=== PATIENT | male | born 1975 | race Caucasian/White ===

== ENCOUNTER 2024-06-16 20:37 | Emergency (ER) | payer OTHER, SELFPAY ==
[2024-06-16 20:43] VITALS: BP 166/100
[2024-06-16 21:02] LABS: % Basophils 0.6 % (0-2); % Eosinophils 2.5 % (0-6); % Immature Granulocytes 0.5 % (0-0.5); % Lymphocytes 28.2 % (20.5-51.1); % Neutrophils 61.2 % (42.2-75.2); Absolute Basophils 0.1 10^3/uL (0-0.2); Absolute Eosinophils 0.2 10^3/uL (0-0.7); Absolute Lymphocytes 2.3 10^3/uL (1.2-3.4); Absolute Monocytes 0.6 10^3/uL (0.1-0.6); Absolute Neutrophils 4.9 10^3/uL (1.4-6.5); Hematocrit 40.7 % (39.0-52.0); Hemoglobin 14.4 g/dL (13.0-18.0); Mean Corp Hgb Conc. 35.4 g/dL (33.0-37.0); Mean Corpuscular Hgb 27.7 pg (27.0-31.0); Mean Corpuscular Volume 78.3 fL (80.0-94.0); Mean Platelet Volume 9.9 fL (7.4-10.4); Nucleated Red Blood Cells % 0 % (-); Platelet Count 274 10^3/uL (130-400); Red Cell Dist. Width 13.1 % (11.5-14.5)
[2024-06-16 21:20] VITALS: BP 153/94
[2024-06-16 21:21] LABS: ALT (SGPT) 23 U/L (0-50); AST (SGOT) 25 U/L (17-59); Albumin 4.5 g/dl (3.5-5.0); Alkaline Phosphatase 70 U/L (38-126); Blood Urea Nitrogen 18 mg/dl (9-20); Calcium 8.9 mg/dl (8.4-10.2); Carbon Dioxide 19 mmol/L (22-30); Chloride 105 mmol/L (98-107); Glucose 169 mg/dl (70-99); Potassium 3.9 mmol/L (3.5-5.1); Sodium 142 mmol/L (135-145); Total Bilirubin 0.9 mg/dl (0.2-1.3); Total Protein 6.9 g/dl (6.3-8.2); eGFR > 60.00
[2024-06-16 21:28] LABS: Troponin I < 0.012 ng/ml
--- NOTE | 2024-06-16 21:41 | ED.GENMED ---
History of Present Illness
General
Chief Complaint: Chest Pain
Time Seen by Provider: 06/16/24 21:25
History of Present Illness
History of Present Illness:
48-year-old male presents the emergency department for evaluation of left-sided chest discomfort that began approximately 2 hours ago, states that he feels a 'stretching' to the left pectoral region that began after eating ice cream. The symptoms
are better when lying flat and worse when upright. Denies any fevers or chills. Symptoms are somewhat pleuritic in nature as well. No coughing, recent fevers, nausea, or vomiting. Does note that he was recently diagnosed with newly discovered
cardiac murmur follow-up with cardiac history 2 to 3 weeks
Review of Systems
Review of Systems
Allergies reviewed?: Yes
All Other Systems: ROS reviewed and negative except as documented in HPI and ROS
Phy Exam
Physical Exam
Physical Exam:
GEN: Well appearing, NAD, WDWN
HEENT: Oral mucosa moist, no scleral icterus
Cardiac: Regular rate and rhythm, 1 out of 6 systolic murmur
Lung: No respiratory distress, no tachypnea, lungs clear to auscultation bilaterally
MSK: No gross deformity or injuries
Skin: Good color, no pallor or jaundice, no rashes
Neuro: AO x3, moves all extremities freely
Psych: Calm, cooperative
Scores
Heart Score for Chest Pain Patients
STEMI patient?: No
History: Slightly or Non-Suspicious
ECG: Normal
Age: >45 - <65 years
Risk Factors: 1 or 2 Risk Factors
Troponin: </= Normal Limit
Heart Score for Chest Pain Patients: 2
Heart Score Risk: 2.5% MACE over next 6 weeks
Course
Orders/Labs/Results
Orders:
Orders
06/16/24 20:38
Electrocardiogram (*1) Urgent
Reason for Study: Chest Pain
EKG- Treatment ONCE
06/16/24 20:52
Chest [CR Chest - 2 Views ] Urgent
Comment:
Reason For Exam: left chest pain
06/16/24 20:56
Complete Blood Count/With Diff Urgent
Comprehensive Metabolic Panel Urgent
Troponin I Urgent
06/16/24 21:41
Ketorolac [Toradol] 30 mg IM NOW STA
Abnormal Lab Results
06/16/24
20:56
MCV 78.3 L fL
(80.0-94.0)
Carbon Dioxide 19 L mmol/L
(22-30)
Glucose 169 H mg/dl
(70-99)
06/16/24 20:56
06/16/24 20:56
Vital Signs
Initial and Last Documented VS:
Initial Vital Signs
Temp Pulse Resp BP Pulse Ox
97.4 F 70 20 166/100 97
06/16/24 20:43 06/16/24 20:43 06/16/24 20:43 06/16/24 20:43 06/16/24 20:43
Last Documented Vital Signs
Temp Pulse Resp BP Pulse Ox
97.4 F 67 26 164/96 94
06/16/24 20:43 06/16/24 22:15 06/16/24 22:15 06/16/24 22:00 06/16/24 22:15
MDM/Problems Addressed
MDM/Problems Addressed:
Low level of concern for ACS in this patient given that symptoms began after eating and he has a normal EKG and negative troponins. His pain resolved with anti-inflammatory occasion. Could be GI versus musculoskeletal origin. Meets PE rule out
criteria by age and vital signs. Certainly does have an auscultated cardiac murmur but he has planned outpatient follow-up for this
Comment
Comment:
EKG independently interpreted by me shows a normal sinus rhythm at a rate of [address] changes concerning for ischemia
*Critical Care Note
Total Time (30-74mins, 75-104mins- exclusive of procedures): Not Applicable
ED Attending Note
-
Portions of this chart may have been created with voice recognition software.� Occasional wrong word or��sound alike� substitutions may have occurred due to the inherent limitations of voice recognition software.
Discharge Plan
Departure
Patient Disposition: Home (Routine Discharge)
Date of Disposition: 06/16/24
Time of Disposition: 22:32
Patient with high blood pressure during this ER visit?: No
Discharge Problem:
Atypical chest pain
Instructions: Chest Pain That Is Not Caused by the Heart (DC)
Prescriptions:
No Action
valsartan
80 mg PO DAILY
Referrals:
Marissa Roy CRNP [Family Provider] -
Activity Restrictions/Additional Instructions:
Have your blood pressure rechecked by your doctor in 1-2 weeks
Interventions
Interventions:
*Risk Screen - Suicide Last Done: 06/16/24 20:43
*General Assessment Last Done: 06/16/24 20:43
*Neglect/Abuse Screening Last Done: 06/16/24 20:43
ED- Fall Risk Assessment Last Done: 06/16/24 20:43
*ED COVID-19 Vaccine History Last Done: 06/16/24 20:43
*Nursing Disposition Last Done: 06/16/24 22:38
ED- Cardiac Assessment Last Done: 06/16/24 21:30
Discharge Date and Time
Discharge Date/Time: 06/16/24 22:38
Print Language: NEPALESE
[2024-06-16] MEDS: TORADOL 30 MG IM (21:45)
[2024-06-16 22:00] VITALS: BP 164/96
== END 2024-06-16 22:38 | disposition home or self-care (01) ==
LOC: EMR 20:37
PROVIDERS: EMERGENCY PHYSICIAN Emergency Medicine; FAMILY PHYSICIAN Nurse Practitioner Adult Health
DX: R07.89 Other chest pain (principal)
CPT/HCPCS: 96372; 99284; 71046; 80053; 84484; 85025; 93005